=== PATIENT | male | born 1960 | race Caucasian/White ===

== ENCOUNTER 2024-08-25 18:45 | Emergency (ER) | payer OTHER, SELFPAY ==
[2024-08-25 18:48] VITALS: BP 170/90
[2024-08-25 19:05] LABS: % Basophils 0.6 % (0-2); % Eosinophils 0.8 % (0-6); % Immature Granulocytes 0.4 % (0-0.5); % Lymphocytes 22.3 % (20.5-51.1); % Monocytes 15.7 % (1.7-9.3); % Neutrophils 60.2 % (42.2-75.2); Absolute Basophils 0.1 10^3/uL (0-0.2); Absolute Eosinophils 0.1 10^3/uL (0-0.7); Absolute Lymphocytes 2.1 10^3/uL (1.2-3.4); Absolute Monocytes 1.5 10^3/uL (0.1-0.6); Absolute Neutrophils 5.6 10^3/uL (1.4-6.5); Hemoglobin 15.1 g/dL (13.0-18.0); Mean Corp Hgb Conc. 33.6 g/dL (33.0-37.0); Mean Corpuscular Hgb 30.4 pg (27.0-31.0); Mean Corpuscular Volume 90.5 fL (80.0-94.0); Mean Platelet Volume 9.5 fL (7.4-10.4); Nucleated Red Blood Cells % 0 % (-); Platelet Count 229 10^3/uL (130-400); Red Blood Cell Count 4.97 10^6/uL (4.70-6.10); Red Cell Dist. Width 12.8 % (11.5-14.5); White Blood Cell Count 9.3 10^3/uL (4.8-10.8)
[2024-08-25 19:17] LABS: ALT (SGPT) 113 U/L (0-50); AST (SGOT) 97 U/L (17-59); Albumin 4.5 g/dl (3.5-5.0); Alkaline Phosphatase 64 U/L (38-126); Blood Urea Nitrogen 18 mg/dl (9-20); Calcium 8.7 mg/dl (8.4-10.2); Carbon Dioxide 25 mmol/L (22-30); Chloride 102 mmol/L (98-107); Glucose 107 mg/dl (70-99); Potassium 3.9 mmol/L (3.5-5.1); Sodium 138 mmol/L (135-145); Total Bilirubin 1.3 mg/dl (0.2-1.3); Total Protein 7.2 g/dl (6.3-8.2); eGFR > 60.00
[2024-08-25] MEDS: TAMIFLU 75 MG PO (21:24)
--- NOTE | 2024-08-25 23:12 | ED.GENMED ---
History of Present Illness
General
Chief Complaint: Breathing Problem
Source: patient
Exam Limitations: none
Time Seen by Provider: 08/25/24 20:02
Nursing documentation reviewed up to this point in time: agreed with
History of Present Illness
History of Present Illness:
Paient to ED with complaint of fever, cough, bodyaches, SOB. States he was diagnosed with pneumonia 1 week ago. Started to improve over the week and then became worse yesterday. He ws seen at today and diagnosend with influenza A. Sent to ED
for concern of pneumonia. Brought to ED by spouse for eval. Pulse ix 97% RA. Temp 99.0
Past History
Past History
ED Past Medical History: HTN and Other (Gout. Has been on colchicine for a short period in the past.)
ED Past Surgical History: Orthopedic
Social History
Tobacco: Non-smoker
Alcohol: Occasional
Drug: None
Personal:
Living: with family
Employment: Employed
Family History
Family History: Other (Noncontributory )
Review of Systems
Review of Systems
Allergies reviewed?: Yes
All Other Systems: ROS reviewed and negative except as documented in HPI and ROS
Constitutional: Reports fever and fatigue
EENT: Reports no symptoms
Respiratory: Reports cough and trouble breathing
Cardiac: Reports no symptoms
ABD/GI: Reports no symptoms
: Reports no symptoms
Musculoskeletal: Reports no symptoms
Skin: Reports no symptoms
Neurological: Reports weakness
Psychiatric: Reports no symptoms
Phy Exam
General Physical Exam
General Presentation: well appearing and no apparent distress
General age: appears stated age
General Skin: warm and dry
General Habitus: normal
General Mental: alert
Cardiovascular Exam
Cardiovascular Exam: regular rate/rhythm and no edema
Pulmonary Exam
Pulmonary Exam: lungs clear, no respiratory distress and chest non tender
Musculoskeletal Exam
Musculoskeletal Exam: full ROM and neuro vasc intact
Skin Exam
Skin Exam: normal color, warm/dry and no rash
Psychiatric Exam
Psychiatric Exam: normal mood/affect
Scores
Heart Failure Risk
Heart Failure Risk Score: Not Applicable
Course
Orders/Labs/Results
Orders:
Orders
08/25/24 18:52
CXR2 [CR Chest - 2 Views ] Urgent
Comment:
Reason For Exam: SOB
08/25/24 18:58
CBC/With Diff [Complete Blood Count/With Diff] Urgent
Comprehensive Metabolic Panel Urgent
08/25/24 21:20
Oseltamivir Phosphate [Tamiflu] 75 mg PO NOW STA
Abnormal Lab Results
08/25/24
18:58
Absolute Monos (auto) 1.5 H 10^3/uL
(0.1-0.6)
Monocytes % 15.7 H %
(1.7-9.3)
Glucose 107 H mg/dl
(70-99)
AST 97 H U/L
(17-59)
ALT 113 H U/L
(0-50)
08/25/24 18:58
08/25/24 18:58
Vital Signs
Initial and Last Documented VS:
Initial Vital Signs
Temp Pulse Resp BP Pulse Ox
99.1 F 103 20 170/90 98
08/25/24 18:48 08/25/24 18:48 08/25/24 18:48 08/25/24 18:48 08/25/24 18:48
Last Documented Vital Signs
Temp Pulse Resp BP Pulse Ox
99.1 F 103 20 170/90 97
08/25/24 18:48 08/25/24 18:48 08/25/24 18:48 08/25/24 18:48 08/25/24 20:17
*Radiology
Radiology exam reviewed: radiology read reviewed
*Pulse Oximetry
Patient hypoxic: no
*Critical Care Note
Total Time (30-74mins, 75-104mins- exclusive of procedures): Not Applicable
Update Note
Update Note:
PPatient to ED from for CXR to r/o pneumonia. He is influenza A positive. Labs, cxr reviewed. No evidience of pneumonia. Placed on tamiflu. He is stable for discharge. LCTA, no hypoxemia. Given instructions on s/s/ to return to ED and he is
agreeable to plan.
ED Attending Note
-
Portions of this chart may have been created with voice recognition software.� Occasional wrong word or��sound alike� substitutions may have occurred due to the inherent limitations of voice recognition software.
Discharge Plan
Departure
Patient Disposition: Home (Routine Discharge)
Date of Disposition: 08/25/24
Time of Disposition: 21:21
Patient with high blood pressure during this ER visit?: No
Condition: Good
Covid-19: Not Applicable
Discharge Problem:
Influenza A
Instructions: Flu in adults - Discharge instructions
Prescriptions:
New
oseltamivir [Tamiflu] 75 mg capsule
75 mg PO BID Qty: 10 0RF
promethazine-codeine 6.25-10 mg/5 mL syrup
5 ml PO Q6H PRN (Reason: Cough) Qty: 118 0RF
No Action
lisinopril 10 MG tablet
10 mg PO DAILY
colchicine 0.6 MG tablet
0.6 mg PO BID Qty: 14 0RF
Activity Restrictions/Additional Instructions:
Follow up with your family doctor.
Interventions
Interventions:
*Risk Screen - Suicide Last Done: 08/25/24 18:48
*General Assessment Last Done: 08/25/24 21:37
*Neglect/Abuse Screening Last Done: 08/25/24 18:48
ED- Fall Risk Assessment Last Done: 08/25/24 21:37
*ED COVID-19 Vaccine History Last Done: 08/25/24 21:37
*Nursing Disposition Last Done: 08/25/24 21:37
ED- Cardiac Assessment Last Done: 08/25/24 20:16
ED- Pulmonary Assessment Last Done: 08/25/24 20:16
Discharge Date and Time
Discharge Date/Time: 08/25/24 21:38
Print Language: [place]
== END 2024-08-25 21:38 | disposition home or self-care (01) ==
LOC: EMR 18:45
PROVIDERS: Emergency Medicine; EMERGENCY PHYSICIAN Student in an Organized Health Care Education/Training Program
DX: J10.1 Influenza due to other identified influenza virus with other respiratory manifestations (principal)
CPT/HCPCS: 99284; 71046; 80053; 85025